=== PATIENT | female | born 1985 | race Caucasian/White ===

== ENCOUNTER → 2016-10-06 | Outpatient (CLI) | payer BC ==
[~2016-10-06] MED LIST: BCP; IBU800 M1 PO; MOTRIN 800800 MG/TAB PO; PERCOCET 325 MG1 TA2 PO; PRENATAL PLUS
== END ==
LOC: LDRO 15:34
DX: Z53.9 Procedure and treatment not carried out, unspecified reason (principal)

== ENCOUNTER 2016-10-18 17:52 | Outpatient (CLI) | payer BC ==
[~2016-10-18] VITALS: Ht 162.6 cm; Wt 78.5 kg
[~2016-10-18 17:52] MED LIST changes: -IBU800 M1 PO
== END 2016-10-18 18:38 | disposition home or self-care (01) ==
LOC: LDRO 17:52
DX: O76 Abnormality in fetal heart rate and rhythm complicating labor and delivery (principal); Z3A.34 34 weeks gestation of pregnancy

== ENCOUNTER → 2016-10-24 | Outpatient (CLI) | payer OTHER, BC ==
[~2016-10-24] MED LIST changes: +IBU800 M1 PO
[2016-10-24 13:57] LABS: PH 6 (5-8); SQUAMOUS EPITHELIAL 0-2 /hpf; URINE APPEARANCE Clear; URINE BACTERIA None Seen /hpf; URINE BILIRUBIN Negative (NEGATIVE); URINE BLOOD Negative (NEGATIVE); URINE COLOR Straw; URINE GLUCOSE Negative (NEGATIVE); URINE KETONE Negative (NEGATIVE); URINE RBC 0-2 /hpf; URINE UROBILINOGEN Negative (NEGATIVE); URINE WBC 0-2 /hpf
== END ==
LOC: COL.LAB 13:32
PROVIDERS: Student in an Organized Health Care Education/Training Program
DX: R30.0 Dysuria (principal)

== ENCOUNTER → 2016-10-24 | Outpatient (REF) | LOC: WSOH 15:20 | DX: Z23 Encounter for immunization (principal) ==

== ENCOUNTER 2016-11-29 22:26 | Inpatient (IN) | payer OTHER ==
[~2016-11-29] VITALS: Ht 162.6 cm; Wt 82.7 kg
[~2016-11-29 22:26] MED LIST changes: -IBU800 M1 PO
[2016-11-29 22:33] VITALS: BP 132/88; PULSE 76; TEMP 97.9
[2016-11-29 23:09] VITALS: BP 119/77; PULSE 83
[2016-11-30] VITALS (36 sets, daily range): BP systolic 99–141; BP diastolic 54–99; PULSE 68–98; TEMP 97.9–98.3
[2016-11-30 01:37] LABS: BASO % 0.2 % (0.0-2.0); EOS # 0.2 (0.0-0.7); EOS % 0.8 % (0-4.0); GRAN # 12.9 (1.4-6.5); GRAN % 68.4 % (42.2-75.2); LYMPH # 4.4 (1.2-3.4); LYMPH % 23.3 % (20.0-51.0); MEAN CELL VOLUME 89 fl (80.0-100.0); MEAN CORPUSCULAR HGB CONC 33 g/dl (33.0-37.0); MEAN PLATELET VOLUME 10.1 fl (7.4-10.4); MONO # 1.1 (0.1-0.6); MONO % 5.7 % (1.7-9.3); PLATELET COUNT 250 K/mm3 (130-400); RED BLOOD COUNT 3.96 M/mm3 (4.10-5.30); REDCELL DISTRIBUTION WIDTH-CV 12.9 % (11.5-14.5); WHITE BLOOD COUNT 18.9 K/mm3 (4.8-10.8)
[2016-11-30 01:40] LABS: HEMATOCRIT 35.4 % (37.0-47.0); HEMOGLOBIN 11.7 g/dl (12.5-16.0); MEAN CORPUSCULAR HEMOGLOBIN 30 pg (27.0-31.0)
[2016-12-01 01:30] VITALS: BP 129/87; PULSE 72; TEMP 98.1
[2016-12-01 09:00] VITALS: BP 124/86; PULSE 83; TEMP 98.7
[2016-12-01] MEDS ORDERED: IBU800 M1 PO (11:32)
== END 2016-12-01 12:35 | disposition home or self-care (01) | DRG 775 ==
LOC: LDRO 22:26 → OB 11-30 00:50 → LDR 11-30 00:50 → OB 11-30 10:00
PROVIDERS: Student in an Organized Health Care Education/Training Program
PROC: 10D07Z6 Extraction of Products of Conception, Vacuum, Via Natural or Artificial Opening (ICD-10-PCS; principal; 2016-11-30)
PROC: 0KQM0ZZ Repair Perineum Muscle, Open Approach (ICD-10-PCS; 2016-11-30)
DX: O48.0 Post-term pregnancy (principal); O76 Abnormality in fetal heart rate and rhythm complicating labor and delivery; O70.1 Second degree perineal laceration during delivery; Z3A.40 40 weeks gestation of pregnancy; Z37.0 Single live birth
CPT/HCPCS: J2405; J2590; J7120

== ENCOUNTER → 2017-01-19 | Outpatient (REF) ==
[~2017-01-19] MED LIST changes: +IBU800 M1 PO
== END ==
LOC: WSOH 10:48
DX: Z02.89 Encounter for other administrative examinations (principal)

== ENCOUNTER → 2017-02-13 | Outpatient (REF) | LOC: WSOH 13:38 | DX: Z02.89 Encounter for other administrative examinations (principal) | CPT/HCPCS: G0463 ==

== ENCOUNTER → 2017-03-17 | Outpatient (REF) | LOC: WSOH 17:30 | DX: Z02.89 Encounter for other administrative examinations (principal) ==

== ENCOUNTER 2020-04-01 19:43 | Emergency (ER) | payer OTHER ==
[2020-04-01 20:00] VITALS: BP 121/83; PULSE 76; TEMP 98.3
[2020-04-01 21:44] LABS: HIV-1p24 Antigen Non-Reactive
[2020-04-01 21:45] LABS: HIV 1/2 Antibodies Non-Reactive
[2020-04-02 19:41] LABS: HEPATITIS B SURFACE ANTIGEN Negative (Negative); HEPATITIS C VIRUS ANTIBODY Negative (Negative)
== END 2020-04-01 21:07 | disposition home or self-care (01) ==
LOC: COL.ER 19:43
PROVIDERS: Physician Assistant
DX: S60.940A Unspecified superficial injury of right index finger, initial encounter (principal); W46.1XXA Contact with contaminated hypodermic needle, initial encounter

== ENCOUNTER → 2020-07-16 | Outpatient (REF) | LOC: WSOH 09:49 | DX: Z20.822 Contact with and (suspected) exposure to COVID-19 (principal) ==

== ENCOUNTER → 2020-12-30 | Outpatient (REF) | LOC: COL.LAB 07:41 | DX: Z20.822 Contact with and (suspected) exposure to COVID-19 (principal) ==